=== PATIENT | female | born 1980 | race Two or more races ===

== ENCOUNTER 2025-04-28 11:01 | Emergency (ER) | payer OTHER ==
[~2025-04-28] VITALS: Ht 162.6 cm; Wt 88.9 kg
[2025-04-28 11:16] VITALS: BP 130/89; O2SAT 99
[2025-04-28] MEDS ORDERED: ADIPEX-P37.5 M1 PO (11:16)
[2025-04-28] MEDS ORDERED: 0.9 % SODIUM CHLORIDE 1,000 ML IV SCH (12:45)
[2025-04-28 13:17] LABS: BASO % 1.1 % (0.1-1.2); EOS # 0.26 (0.04-0.54); EOS % 4.7 % (0.7-7.0); HEMATOCRIT 27.7 % (34.1-44.9); HEMOGLOBIN 9.1 g/dL (11.2-15.7); LYMPH # 1.72 (1.18-3.74); LYMPH % 30.8 % (19.3-53.1); MEAN CORPUSCULAR HEMOGLOBIN 31.4 pg (25.6-32.2); MONO # 0.28 (0.24-0.82); NEUT # 3.26 (1.56-6.13); NEUT % 58.2 % (34.0-71.1); PLATELET COUNT 220 K/uL (163-369); RED CELL DISTRIBUTION WIDTH 15.9 % (11.6-14.4)
[2025-04-28 13:49] LABS: ALBUMIN 3.6 gm/dL (3.4-5.0); BILIRUBIN TOTAL 0.25 mg/dL (0.3-1.2); CALCIUM 8.9 mg/dL (8.5-10.1); CREATININE SERUM 0.66 mg/dL (0.55-1.02); GFR 96.41; GLOBULINA 3.6 G/DL (2.4-3.5); POTASSIUM 4.45 mEq/L (3.5-5.1); TOTAL PROTEIN 7.2 gm/dL (6.4-8.2)
[2025-04-28] MEDS ORDERED: MEGESTROL ACETA40 MG PO (14:30)
== END 2025-04-28 14:39 | disposition home or self-care (01) ==
LOC: ER 11:13
PROVIDERS: General Practice
DX: N93.9 Abnormal uterine and vaginal bleeding, unspecified (principal); N83.291 Other ovarian cyst, right side